=== PATIENT | female | born 1945 | race African-American/Black ===

== ENCOUNTER 2021-07-10 11:16 | Outpatient (CLI) | payer OTHER ==
[2021-07-10 21:10] LABS: SARS-CoV-2 PCR by NAA Not Detected (NotDetected)
== END 2021-07-10 11:17 | disposition home or self-care (01) ==
LOC: CSHLAB 11:16
PROVIDERS: ATTEND Internal Medicine Gastroenterology
DX: Z20.822 Contact with and (suspected) exposure to COVID-19 (principal); R10.9 Unspecified abdominal pain; K63.5 Polyp of colon
CPT/HCPCS: U0003; U0005

== ENCOUNTER 2021-07-15 06:16 | Day surgery (SDC) | payer MEDICARE, MEDICAID ==
[2021-07-10 14:56] VITALS: BMI 37.5
[2021-07-15] MEDS ORDERED: Lidocaine 1% MPF 2 ML VIAL ONE (07:18)
[2021-07-15] MEDS ORDERED: PROPOFOL 40 ML ONE (08:44)
== END 2021-07-15 10:15 | disposition home or self-care (01) ==
LOC: CSHSDC 06:16
PROVIDERS: ATTEND Internal Medicine Gastroenterology
PROC: 0DBM8ZZ Excision of Descending Colon, Via Natural or Artificial Opening Endoscopic (ICD-10-PCS; principal; 2021-07-15)
PROC: 0DB68ZZ Excision of Stomach, Via Natural or Artificial Opening Endoscopic (ICD-10-PCS; 2021-07-15)
DX: Z08 Encounter for follow-up examination after completed treatment for malignant neoplasm (principal); K63.5 Polyp of colon; K64.9 Unspecified hemorrhoids; Z85.038 Personal history of other malignant neoplasm of large intestine; K44.9 Diaphragmatic hernia without obstruction or gangrene; K31.7 Polyp of stomach and duodenum; K29.70 Gastritis, unspecified, without bleeding
CPT/HCPCS: 88305; J2704